=== PATIENT | female | born 1970 | race Caucasian/White ===

== ENCOUNTER → 2018-04-27 | Day surgery (SDC) | payer BC ==
[~2018-04-27] MED LIST: Lactated Ringers 1,000 ML IV SCH; Midazolam 1 MG/ML 2 ML SDV ONE; Propofol 200 MG/20 ML SDV ONE; Sodium Chloride 0.9% 10 ML Syringe FLUSH PRN; fentaNYL 100 MCG/2 ML SDV ONE
--- NOTE | 2018-04-27 10:16 | PCM.HPR ---
H & P Addendum review - H & P Addendum Review Date of Original H & P: 04/11/18 Date Reviewed: 04/27/18 Time Reviewed: 10:16 Patient was Examined: No Changes
--- NOTE | 2018-04-27 10:52 | PCM.OPNOTE ---
- General Post-Op/Procedure Note Date of Surgery/Procedure: 04/27/18 Operative Procedure(s): Colonoscopy Findings: normal Pre Op Diagnosis: Hx Polyps Post-Op Diagnosis: Same Anesthesia Technique: CATHERINE Secondary Surgeon: Duane Hurley Locomotive Repairer Diesel: Aretha Bower Complications: None Condition: Good Free Text/Narrative:: Intake & Output 04/26/18 04/27/18 04/27/18 22:59 06:59 14:59 Intake Total 600 Balance 600
--- NOTE | 2018-04-27 14:45 | OR ---
Date of Procedure: 04/27/2018 PREOPERATIVE DIAGNOSIS: History of colon polyps. POSTOPERATIVE DIAGNOSIS: Normal colonoscopy. PROCEDURE: Colonoscopy. ANESTHESIA: IV sedation. DESCRIPTION OF PROCEDURE: The patient was brought to the procedure room, where she was placed on her left side and IV sedation administered. Digital rectal exam was performed, which was normal. Colonoscope was inserted and advanced to the level of the cecum without difficulty. Cecal position was confirmed by identifying the appendiceal lumen and the ileocecal valve. Prep was good and surfaces were well visualized. Upon withdrawing the scope, the ascending, transverse, and descending colon were normal in appearance. Sigmoid colon and rectum were normal. Retroflexion was normal. Air was removed and the scope withdrawn. The patient tolerated procedure well and returned to recovery in stable condition. Recommend routine colon screening again in 5 years. LEVAR ODEN MD /[id number]
== END | disposition home or self-care (01) ==
LOC: LL.SDS 08:47
PROVIDERS: ATTEND Surgery
DX: Z12.11 Encounter for screening for malignant neoplasm of colon (principal); J30.9 Allergic rhinitis, unspecified; F17.210 Nicotine dependence, cigarettes, uncomplicated; F41.8 Other specified anxiety disorders; Z79.1 Long term (current) use of non-steroidal anti-inflammatories (NSAID); Z79.899 Other long term (current) drug therapy; Z88.5 Allergy status to narcotic agent; Z98.890 Other specified postprocedural states; Z86.010 Personal history of colon polyps
CPT/HCPCS: 45378; 81025; J2250; J2704; J3010; J7120

== ENCOUNTER 2019-12-13 14:11 | Emergency (ER) | payer BC ==
--- NOTE | 2019-12-13 14:18 | EDM.PDOC ---
ED HPI GENERAL MEDICAL PROBLEM - General Chief Complaint: Lower Extremity Injury/Pain Stated Complaint: Left foot pain Time Seen by Provider: 12/13/19 14:11 Source of Information: Reports: Patient, Family (), Old Records ([facility] chart/EMR) History Limitations: Reports: No Limitations - History of Present Illness INITIAL COMMENTS - FREE TEXT/NARRATIVE: The patient was brought to the emergency room via private automobile by her for evaluation of 8/10 left throbbing, sharp foot pain with symptoms present on an intermittent basis since November 2019, however worsening symptoms during the last couple of days. She has still been able to go to work with no history of acute injury, paresthesias, neurological deficits, etc. Patient has also had chronic intermittent bilateral wrist pain during the last few months and nonspecific arthralgias with possible diagnosis of gout in the past. The patient did take Aleve yesterday secondary to running out of her Mobic. She is apparently scheduled for extensive rheumatological blood work and x-rays of her 2 wrists tomorrow by her regular provider, Leandra Arita PA-C, at [facility] in [place]. The patient denies any chest pain/pressure, heart flutter, dizziness, orthostasis, orthopnea, diaphoresis, paresthesias, recent decreased exercise tolerance, or any other anginal-type symptoms. No recent history of abdominal pain, heartburn, nausea, diarrhea, melena, gross hematochezia, or any food intolerance, including fatty foods, etc.. The patient also denies any recent fever, cough, wheezing, dyspnea, etc.. Note that the patient did take 1000 mg of Tylenol at 5 AM and 20 mg of Flexeril at 14:00 hours today with no improvement of her symptoms. Onset: Gradual, Other (As above) Duration: Getting Worse Location: Reports: Upper Extremity, Left, Upper Extremity, Right, Lower Extremity, Left, Generalized. Denies: Head, Face, Neck, Chest, Abdomen, Back, Pelvis, Radiates to Quality: Reports: Same as Previous Episode, Sharp, Throbbing Severity: Moderate Improves with: Reports: None Worsens with: Reports: None Context: Reports: Other (As above). Denies: Sick Contact, Trauma Associated Symptoms: Denies: Confusion, Chest Pain, Cough, Diaphoresis, Fever/ Chills, Headaches, Loss of Appetite, Nausea/Vomiting, Shortness of Breath, Weakness Treatments SUPER[employer]OR MAILS: Reports: NSAIDS, Other Medication(s) (Home medications as above) Left foot Pain Score (Numeric/FACES): 8 - Related Data Allergies Allergy/AdvReac Type Severity Reaction Status Date / Time codeine Allergy Itching Verified 09/10/18 22:47 Home Meds: Home Meds ALPRAZolam [Alprazolam] 0.25 mg PO TID PRN 04/06/15 [History] Escitalopram [Lexapro] 15 mg PO DAILY 04/06/15 [History] Multivit-Min/FA/Lycopen/Lutein [Centrum Silver Tablet] 2 tab PO DAILY 12/13/19 [ History] allopurinoL [Zyloprim] 100 mg PO DAILY 12/13/19 [History] Past Medical History HEENT History: Reports: Impaired Vision, Other (See Below). Denies: Allergic Rhinitis, Cataract, Glaucoma, Hard of Hearing, Macular Degeneration, Retinal Detachment Other HEENT History: Patient wears glasses. Cardiovascular History: Reports: High Cholesterol, Other (See Below). Denies: Afib, Aneurysm, Arrhythmia, Blood Clots/VTE/DVT, CAD, Heart Failure, Heart Murmur, Hypertension, AR, Syncope Other Cardiovascular History: Dyslipidemia. Respiratory History: Reports: Intubation, Previous. Denies: Asthma, Bronchitis , Recurrent, COPD, Intubation, Difficult, PE, Pneumonia, Recurrent, Pneumothorax , Sleep Apnea, TB Gastrointestinal History: Reports: Cholelithiasis, Colon Polyp, Other (See Below ). Denies: Bowel Obstruction, Celiac Disease, Fatty Liver, GERD, GI Bleed, Inflammatory Bowel Disease, Irritable Bowel Syndrome, Jaundice, Pancreatitis, PUD Other Gastrointestinal History: Polyps of unknown type. Initially removed in about 2014. Genitourinary History: Reports: None. Denies: Acute Renal Failure, Chronic Renal Insuffiency, Renal Calculus, STD, Urinary Incontinence, UTI, Recurrent X RAY DEVELOPER History: Reports: Dysfunctional Uterine Bleeding, Fibroids, Polycystic Ovaries, . Denies: Endometriosis, Spontaneous , Therapeutic : 3 Para: 3 Other X RAY DEVELOPER History: Right ovarian cyst, 3. Full-term deliveries without other complications during or deliveries. History of atypical Pap smear of unknown character with no therapy required. LMP one week ago which was normal. Musculoskeletal History: Reports: Amputation, Arthritis, Back Pain, Chronic, Fracture, Gout, Osteoarthritis, Other (See Below). Denies: Neck Pain, Chronic, RA, SLE Other Musculoskeletal History: Hx Left ankle fracture in about 1997 with surgery as below. L5S1 anterolisthesis. Distal left fibular avulsion fracture on 02/27/08. Neurological History: Reports: None, Neuropathy, Peripheral. Denies: Cerebral Aneurysms, Concussion, CVA, Headaches, Chronic, Head Trauma, Migraines, MS, Parkinson's, Seizure, TIA, Vertigo Psychiatric History: Reports: Anxiety, Depression. Denies: Abuse, Victim of, ADD, ADHD, Addiction, Psych Hospitalization(s), PTSD, Suicide Attempt, Suicidal Ideation Endocrine/Metabolic History: Reports: Obesity/BMI 30+. Denies: Diabetes, Gestational, Diabetes, Type I, Diabetes, Type II, Diabetes Mellitus, Type 3c, Hypothyroidism, IDDM Hematologic History: Reports: None. Denies: Anemia, Blood Transfusion(s), Iron Deficiency Immunologic History: Denies: AIDS, HIV, SLE Oncologic (Cancer) History: Reports: None. Denies: Basal Cell Carcinoma, Breast , Cervix, Colon, Hodgkin's Lymphoma, Leukemia, Lymphoma, Malignant Melanoma, Non -Hodgkin's Lymphoma, Ovarian, Squamous Cell Carcinoma, Uterine Dermatologic History: Reports: None. Denies: Eczema, Psoriasis - Infectious Disease History Infectious Disease History: Reports: Chicken Pox (Childhood brief blindness from bursal infection?). Denies: C-Difficile, Measles, Meningitis, Mononucleosis, MRSA, Mumps, Rheumatic Fever, Rubella, Scarlet Fever, Shingles, TB, VRE - Past Surgical History Head Surgeries/Procedures: Reports: None HEENT Surgical History: Reports: Adenoidectomy, Oral Surgery, Tonsillectomy, Other (See Below). Denies: Cataract Surgery, Detached Retina, Eye Surgery, Laser Surgery, LASIK, Myringotomy w Tube(s), Naso-Sinus Surgery Other HEENT Surgeries/Procedures: Tonsillectomy and adenoidectomy at age 11. [place] teeth extraction 4 at about age 18 with additional teeth extractions. Cardiovascular Surgical History: Reports: None. Denies: Varicose Respiratory Surgical History: Reports: None. Denies: Thoracentesis GI Surgical History: Reports: Cholecystectomy, Colonoscopy, Hernia Repair/Other , Polypectomy, Other (See Below). Denies: Appendectomy, EGD, Hernia, Abdominal , Hernia, Inguinal Other GI Surgeries/Procedures: Umbilical hernia repair on 07/21/07. Colonoscopy on 07/06/12 with removal of hyperplastic colonic polyp at 8 cm. Last colonoscopy on 04/27/18 was normal. Laparoscopic cholecystectomy in the early 1999s. Female Surgical History: Reports: Section, D&C, Other (See Below). Denies: Breast Biopsy, Cervical Conization, Cervical Cryotherapy, Hysterectomy, LEEP, Oophorectomy, Salpingo-Oophorectomy, Tubal Ligation Other Female Surgeries/Procedures: 3. D&C secondary to dysfunctional uterine bleeding on 07/06/12. Endocrine Surgical History: Reports: None. Denies: Thyroid Biopsy Neurological Surgical History: Reports: None. Denies: C-Spine, Discectomy, Laminectomy, Lumbar Spine, Sacral Spine, Spinal Fusion, Thoracic Spine, Vertebroplasty Musculoskeletal Surgical History: Reports: Arthroscopic Procedure, ORIF, Shoulder Surgery, Other (See Below). Denies: Arthroscopic Knee, Carpal Tunnel, Ganglion Cyst, Joint Replacement Other Musculoskeletal Surgeries/Procedures:: Arthroscopic left shoulder rotator cuff repair December 2018. ORIF of left ankle fracture in about 1997. Oncologic Surgical History: Reports: None Dermatological Surgical History: Reports: None - Past Imaging History Past Imaging History: Reports: CAT Scan (CT scan of the abdomen and pelvis on and 07/27/16.), Mammogram (Last mammogram on 08/10/19.), MRI (MRI of the left shoulder on 11/20/18.), Ultrasound (Pelvic ultrasound on 09/11/18, 08/23/18 and 06/05/12..) Social & Family History - Family History GI: Reports: Colon Polyps, Diverticulitis, Diverticulosis, Inflammatory Bowel Disease, Other (See Below). Denies: Celiac Disease, Cholelithiasis, GERD, GI bleed, Irritable Bowel Syndrome, Pancreatitis Other GI Family History: History of colonic polyps of unknown type and also irritable bowel syndrome. Mother with diverticulitis. Musculoskeletal: Reports: RA, Other (See Below). Denies: Gout, SLE Other Musculoskeletal Family History: Father with rheumatoid arthritis at age 33 with paternal grandmother with rheumatoid arthritis at age 23. - Tobacco Use Smoking Status *Q: Current Every Day Smoker Tobacco Use Within Last Twelve Months: No, Cigarettes Years of Tobacco use: 32 Packs/Tins Daily: 0.5 Packs/Tins Daily Comment: Started Smoking at age 17. Used Tobacco, but Quit: No Smoking Cessation Information Provided To Patient: Yes Second Hand Smoke Exposure: No Second Hand Smoke Education Provided: No - Caffeine Use Caffeine Use: Reports: Coffee (1 cup per week), Energy Drinks (1 Can per day), Soda (1 soda per week). Denies: Tea - Alcohol Use Alcohol Use History: Yes Days Per Week of Alcohol Use: 2 Number of Drinks Per Day: 4 Number of Drinks Per Day Comment: Usually mixed drinks. No previous DWIs, problems with alcohol abuse, etc. Total Drinks Per Week: 8 Alcohol Use in Last Twelve Months: Yes - Recreational Drug Use Recreational Drug Use: Yes Drug Use in Last 12 Months: No Recreational Drug Type: Reports: Marijuana/Hashish (Experimental as a teenager.) . Denies: Amphetamines (Speed), Heroin, Inhalants (Glues, Solvents, Aerosols), LSD (Acid), Methamphetamine, Morphine, Oxycodone - Living Situation & Occupation Living situation: Reports: (2006 to second with one child from this marriage.), ( from first with no children from that marriage, however to previous children from significant other relationships with second child given up for adoption.) Occupation: Employed ([employer]) Review of Systems - Review of Systems Review Of Systems: Comprehensive ROS is negative, except as noted in HPI. ED EXAM, GENERAL - Physical Exam Exam: See Below Exam Limited By: No Limitations General Appearance: Alert, WD/WN, No Apparent Distress, Anxious (Moderate) Eye Exam: Bilateral Eye: EOMI, Normal Inspection (No nystagmus. Patient wearing glasses), PERRL Ears: Normal External Exam, Normal Canal, Hearing Grossly Normal, Normal TMs Nose: Normal Inspection, Normal Mucosa, No Blood Throat/Mouth: Normal Inspection, Normal Lips, Normal Teeth, Normal Gums, Normal Oropharynx, Normal Voice, No Airway Compromise. No: Dysphagia, Perioral Cyanosis Head: Atraumatic, Normocephalic. No: Facial Swelling, Facial Tenderness, Sinus Tenderness Neck: Normal Inspection, Supple, Non-Tender, Full Range of Motion. No: Carotid Bruit, Lymphadenopathy (L), Lymphadenopathy (R), Thyromegaly Respiratory/Chest: No Respiratory Distress, Lungs Clear, Normal Breath Sounds, No Accessory Muscle Use, Chest Non-Tender. No: Pleural Rub, Retractions Cardiovascular: Normal Peripheral Pulses, Regular Rate, Rhythm, No Edema, No Gallop, No JVD, No Murmur, No Rub. No: Gallop/S3, Gallop/S4, Friction Rub Peripheral Pulses: 2+: Radial (L), Radial (R), Dorsalis Pedis (L), Dorsalis Pedis (R) GI/Abdominal: Normal Bowel Sounds, Soft, Non-Tender, No Organomegaly, No Distention, No Abnormal Bruit, No Mass, Other (Obese). No: Guarding (Female) Exam: Deferred Rectal (Female) Exam: Deferred Back Exam: Normal Inspection, Full Range of Motion. No: CVA Tenderness (L), CVA Tenderness (R), Muscle Spasm Extremities: Normal Range of Motion, Non-Tender, No Pedal Edema, Normal Capillary Refill, Leg Pain (Nonspecific diffuse left foot pain bilateral wrist pain without evidence of effusion, local warming, inflammation, etc.). No: Joint Swelling, Lilliam's Sign Neurological: Alert, Oriented, CN II-XII Intact, Normal Cognition, Normal Gait, Normal Reflexes, No Motor/Sensory Deficits Psychiatric: Anxious (Moderate), Depressed Mood (Moderate) Skin Exam: Warm, Dry, Intact, Normal Color, No Rash, Tattoo(s). No: Diaphoretic , Ecchymosis, Increased Warmth, Petechiae, Rash, Wound/Incision Lymphatic: No Adenopathy Course - Vital Signs Last Recorded V/S: Last Vital Signs Temp 36.9 C 12/13/19 14:20 Pulse 85 12/13/19 14:20 Resp 21 H 12/13/19 14:20 BP 127/68 12/13/19 14:20 Pulse Ox 99 12/13/19 14:20 Vital Signs - 24 hr 12/13/19 14:20 Temperature [ 36.9 C Oral] Pulse, 85 Peripheral [ Left Pulse Oximetry] Respiratory 21 H Rate Blood Pressure 127/68 [Left Upper Arm ] O2 Sat by Pulse 99 Oximetry - Orders/Labs/Meds Orders: Active Orders 24 hr Category Date Time Status Influenza Vaccine Charge [RC] .DISCHARGE Care 12/13/19 15:05 Active Foot Comp Min 3V Lt [CR] Stat Exams 12/13/19 14:19 Taken Wrist Comp Min 3V Bi [CR] Stat Exams 12/13/19 14:20 Taken MARY W/REFLEX [REF] Routine Lab 12/13/19 15:11 Received CCP ANTIBODIES IGG/IGA [REF] Stat Lab 12/13/19 15:11 Received RHEUMATOID FACTOR [REF] Stat Lab 12/13/19 15:11 Received Obtain Past Medical Record [OM.PC] Routine Oth 12/13/19 14:19 Active Labs: Laboratory Tests 12/13/19 12/13/19 12/13/19 Range/Units 15:11 15:11 15:11 WBC 10.7 H (4.0-10.2) K/uL RBC 4.13 (3.77-5.09) M/uL Hgb 11.4 L (11.7-15.5) g/dL Hct 35.4 (34.0-46.0) % MCV 85.7 (84.0-98.0) fL MCH 27.6 L (28.2-33.3) pg MCHC 32.2 (31.7-36.0) g/dL RDW 14.8 H (11.2-14.1) % Plt Count 351 H (150-350) K/uL Neut % (Auto) 70.4 (45.0-80.0) % Lymph % (Auto) 15.9 (10.0-50.0) % [place] % (Auto) 8.6 (2.0-14.0) % Eos % (Auto) 4.5 (0.0-5.0) % Baso % (Auto) 0.6 (0.0-2.0) % Neut # (Auto) 7.50 H (1.40-7.00) K/uL Lymph # (Auto) 1.69 (0.50-3.50) K/uL [place] # (Auto) 0.92 (0.00-1.00) K/uL Eos # (Auto) 0.48 (0.00-0.50) K/uL Baso # (Auto) 0.06 (0.00-0.20) K/uL ESR (0-20) mm/hr Sodium 140 (136-145) mmol/L Potassium 3.5 (3.5-5.1) mmol/L Chloride 103 (98-107) mmol/L Carbon Dioxide 26.1 (21.0-32.0) mmol/L BUN 11 (7-18) mg/dL Creatinine 0.57 (0.51-1.17) mg/dL Est Cr Clr Drug Dosing 102.04 mL/min Estimated GFR (MDRD) > 60 mL/min Glucose 106 (74-106) mg/dL Uric Acid 5.1 (2.6-7.2) mg/dL Calcium 8.7 (8.5-10.1) mg/dL Total Bilirubin 0.5 (0.2-1.0) mg/dL AST 18 (15-37) U/L ALT 19 (12-78) U/L Alkaline Phosphatase 110 (46-116) IU/L C-Reactive Protein 4.5 H (<=0.9) mg/dL Total Protein 7.3 (6.4-8.2) g/dL Albumin 3.5 (3.4-5.0) g/dL Triglycerides 68 (30-150) mg/dL Cholesterol 140 (100-200) mg/dL LDL Cholesterol, Calc 66 (0-100) mg/dL HDL Cholesterol 60 (40-60) mg/dL TSH, Ultra Sensitive 1.981 (0.358-3.740) mIU/mL 12/13/19 Range/Units 15:11 WBC (4.0-10.2) K/uL RBC (3.77-5.09) M/uL Hgb (11.7-15.5) g/dL Hct (34.0-46.0) % MCV (84.0-98.0) fL MCH (28.2-33.3) pg MCHC (31.7-36.0) g/dL RDW (11.2-14.1) % Plt Count (150-350) K/uL Neut % (Auto) (45.0-80.0) % Lymph % (Auto) (10.0-50.0) % [place] % (Auto) (2.0-14.0) % Eos % (Auto) (0.0-5.0) % Baso % (Auto) (0.0-2.0) % Neut # (Auto) (1.40-7.00) K/uL Lymph # (Auto) (0.50-3.50) K/uL [place] # (Auto) (0.00-1.00) K/uL Eos # (Auto) (0.00-0.50) K/uL Baso # (Auto) (0.00-0.20) K/uL ESR 34 H (0-20) mm/hr Sodium (136-145) mmol/L Potassium (3.5-5.1) mmol/L Chloride (98-107) mmol/L Carbon Dioxide (21.0-32.0) mmol/L BUN (7-18) mg/dL Creatinine (0.51-1.17) mg/dL Est Cr Clr Drug Dosing mL/min Estimated GFR (MDRD) mL/min Glucose (74-106) mg/dL Uric Acid (2.6-7.2) mg/dL Calcium (8.5-10.1) mg/dL Total Bilirubin (0.2-1.0) mg/dL AST (15-37) U/L ALT (12-78) U/L Alkaline Phosphatase (46-116) IU/L C-Reactive Protein (<=0.9) mg/dL Total Protein (6.4-8.2) g/dL Albumin (3.4-5.0) g/dL Triglycerides (30-150) mg/dL Cholesterol (100-200) mg/dL LDL Cholesterol, Calc (0-100) mg/dL HDL Cholesterol (40-60) mg/dL TSH, Ultra Sensitive (0.358-3.740) mIU/mL Meds: Medications Discontinued Medications Generic Name Dose Route Start Last Admin Trade Name Freq PRN Reason Stop Dose Admin Influenza Virus Vaccine 60 mcg 12/13/19 15:15 12/13/19 15:25 Fluzone Quad [id number] Syringe IM 12/13/19 15:16 60 mcg .ONCE ONE Administration Ketorolac Tromethamine 60 mg 12/13/19 15:27 12/13/19 15:32 Toradol IM 12/13/19 15:28 60 mg ONETIME ONE Administration Methylprednisolone Acetate 80 mg 12/13/19 15:03 12/13/19 15:25 Depo-Medrol IM 12/13/19 15:04 80 mg ONETIME ONE Administration - Radiology Interpretation Free Text/Narrative:: X-rays of the left foot, complete, shows evidence of mild osteoarthritic changes with no acute joint inflammation, dislocation, fractures, etc. X-rays of the wrists bilaterally, complete, shows mild osteoarthritic changes with no dislocation, fracture, etc. Departure - Departure Time of Disposition: 16:25 Disposition: Home, Self-Care 01 Condition: Good Clinical Impression: Dyslipidemia, Mixed anxiety depressive disorder, Tobacco abuse counseling Osteoarthritis Qualifiers: Osteoarthritis location: multiple joints Osteoarthritis type: primary Qualified Code(s): M15.0 - Primary generalized (osteo)arthritis Anemia Qualifiers: Anemia type: unspecified type Qualified Code(s): D64.9 - Anemia, unspecified - Discharge Information *PRESCRIPTION DRUG MONITORING PROGRAM REVIEWED*: Not Applicable *COPY OF PRESCRIPTION DRUG MONITORING REPORT IN PATIENT ALYCIA: Not Applicable Instructions: Steps to Quit Smoking, [id number], Health Risks of Smoking, Ketorolac injection, Fat and Cholesterol Restricted Eating Plan, [id number], Methylprednisolone Suspension for Injection Referrals: Leandra Weinstein PA-C [Primary Care Provider] - Forms: ED Department Discharge Additional Instructions: 1. Followup with your regular provider in 7-10 days as directed for reevaluation and discussion of pending lab results from today as discussed. Bring these discharge instructions with you to that visit. 2. Tylenol 650 mg by mouth every 4 hours and/or OTC ibuprofen 2-3 tabs by mouth every 6 hours with food as directed./needed. You may stagger these medications for 48-72 hours only, which essentially means that you are receiving a pain medication about every 2 hours. Next dose of ibuprofen in 6 hours as needed secondary to medications given in the emergency room. 3. Discontinue all energy drink use as discussed. 4. NEVER EXCEED THE RECOMMENDED DOSE OF MEDICINES, INCLUDING OTC MEDICINES, ETC. 5. Stop all tobacco use TORRI as directed/per provided information and consider contacting Quit LIne, etc.. 6. Please remember that we are ALWAYS here for you and want to answer any questions you may have. Feel free to call the hospital any time and we call you back TORRI. 7. Immediately after this visit verify that your cellular telephone's voicemail has been activated and is empty. Also verify that your home telephone 's answering machine is operating properly and has space to receive messages. Note that it is sometimes necessary for us to be able to contact you at a later date to discuss your medical care. 8. BenGay or equivalent, heating pad, and/or ice packs as directed. Sepsis Event Note - Focused Exam Vital Signs: Vital Signs Temp Pulse Resp BP Pulse Ox 12/13/19 14:20 36.9 C 85 21 H 127/68 99 Date Exam was Performed: 12/13/19 Time Exam was Performed: 16:14 - Problem List & Annotations (1) Osteoarthritis SNOMED Code(s): 821039365 Code(s): M19.90 - UNSPECIFIED OSTEOARTHRITIS, UNSPECIFIED SITE Status: Acute Priority: High Current Visit: Yes Annotation/Comment:: Extensive rheumatological workup was conducted today as previously planned by her regular provider with orders received from [facility] in [place] today. Some blood work results are still pending with patient to follow-up with her provider as per discharge instructions. Consider rheumatology referral depending on the workup as above. Various therapeutic options were discussed with the patient, who agrees to change to Tylenol and ibuprofen regimen rather than Modic secondary to Modic's previous ineffectiveness, cost, etc.. She does not need/want a work excuse. The patient was strongly encouraged to remain compliant with all medications and not exceed recommended doses. Per her request IM Depo-Medrol and IM Toradol were given after the above blood work was collected. Otherwise symptomatic relief as per discharge instructions. Note that her CRP and ESR are elevated. Consider possible additional low-dose oral versus subcutaneous methotrexate, other DMARDs, etc. She may be a candidate for biologic therapy. Qualifiers: Osteoarthritis location: multiple joints Osteoarthritis type: primary Qualified Code(s): M15.0 - Primary generalized (osteo)arthritis (2) Dyslipidemia SNOMED Code(s): 030242101 Code(s): E78.5 - HYPERLIPIDEMIA, UNSPECIFIED Status: Chronic Priority: Medium Current Visit: Yes Annotation/Comment:: Weight loss in moderation is advisable. Lipid panel was drawn today per her regular providers request and is 12 hours fasting. Excellent lipid panel today. Dietary information provided at discharge. (3) Mixed anxiety depressive disorder SNOMED Code(s): 238603555 Code(s): F41.8 - OTHER SPECIFIED ANXIETY DISORDERS Status: Chronic Priority: Medium Current Visit: Yes Annotation/Comment:: Moderately poor control based on today's evaluation. Continue to observe her symptoms closely by her regular provider with medication adjustments, counseling, etc. depending on her clinical course. (4) Tobacco abuse counseling SNOMED Code(s): 530616019, 535023391, 785327242 Code(s): Z71.6 - TOBACCO ABUSE COUNSELING Status: Chronic Priority: Medium Current Visit: Yes Annotation/Comment:: Tobacco cessation strongly encouraged with tobacco cessation information provided at discharge. (5) Anemia SNOMED Code(s): 641581585 Code(s): D64.9 - ANEMIA, UNSPECIFIED Status: Acute Priority: Medium Current Visit: Yes Onset Date: 12/13/19 Annotation/Comment:: Mild anemia today with no abdominal complaints, etc. Observe for now. Further workup depending on her clinical course. Mild leukocytosis and thrombocytosis with no fever, sign of infection, etc.. Observe for now. Qualifiers: Anemia type: unspecified type Qualified Code(s): D64.9 - Anemia, unspecified - Problem List Review Problem List Initiated/Reviewed/Updated: Yes - My Orders Last 24 Hours: My Active Orders 12/13/19 14:19 Foot Comp Min 3V Lt [CR] Stat Obtain Past Medical Record [OM.PC] Routine 12/13/19 14:20 Wrist Comp Min 3V Bi [CR] Stat 12/13/19 15:05 Influenza Vaccine Charge [RC] .DISCHARGE 12/13/19 15:11 MARY W/REFLEX [REF] Routine CCP ANTIBODIES IGG/IGA [REF] Stat RHEUMATOID FACTOR [REF] Stat - Assessment/Plan Last 24 Hours: My Active Orders 12/13/19 14:19 Foot Comp Min 3V Lt [CR] Stat Obtain Past Medical Record [OM.PC] Routine 12/13/19 14:20 Wrist Comp Min 3V Bi [CR] Stat 12/13/19 15:05 Influenza Vaccine Charge [RC] .DISCHARGE 12/13/19 15:11 MARY W/REFLEX [REF] Routine CCP ANTIBODIES IGG/IGA [REF] Stat RHEUMATOID FACTOR [REF] Stat Assessment:: As above Plan: As above. Extensive precautions were given to the patient and her , who are in agreement with the treatment plan. See Patient Instructions for further treatment and plan.
[2019-12-13] MEDS ORDERED: methylPREDNISolone Acetate 80 MG/ML SDV IM ONE (15:03)
[2019-12-13] MEDS ORDERED: FLU Vacc QS2019-20(6MOS+)/PF 60 MCG/0.5 ML SYRINGE IM ONE (15:15)
[2019-12-13] MEDS ORDERED: Ketorolac 60 MG/2 ML SDV IM ONE (15:27)
[2019-12-13 15:36] LABS: CHLORIDE,CL 103 mmol/L (98-107); SODIUM,NA 140 mmol/L (136-145)
== END 2019-12-13 16:25 | disposition home or self-care (01) ==
LOC: LL.ED 14:11
DX: M15.0 Primary generalized (osteo)arthritis (principal); E78.5 Hyperlipidemia, unspecified; F41.8 Other specified anxiety disorders; D64.9 Anemia, unspecified; M10.9 Gout, unspecified; F17.210 Nicotine dependence, cigarettes, uncomplicated; E66.9 Obesity, unspecified; Z68.33 Body mass index [BMI] 33.0-33.9, adult; Z71.6 Tobacco abuse counseling; Z88.5 Allergy status to narcotic agent; Z79.899 Other long term (current) drug therapy; Z23 Encounter for immunization
CPT/HCPCS: 36415; 73110-50; 73630-LT; 80053; 80061; 84443; 84550; 85025; 85652; 86038; 86140; 86200; 86431; 90686; 96372; 99283-25; G0008; J1040; J1885

== ENCOUNTER 2020-01-11 06:26 | Emergency (ER) | payer BC, OTHER ==
[2020-01-11] MEDS ORDERED: Ketorolac 60 MG/2 ML SDV IM ONE (06:47)
--- NOTE | 2020-01-11 06:51 | EDM.PDOC ---
ED HPI GENERAL MEDICAL PROBLEM - General Chief Complaint: Upper Extremity Injury/Pain Stated Complaint: right shoulder pain Time Seen by Provider: 01/11/20 06:46 Source of Information: Reports: Patient History Limitations: Reports: No Limitations - History of Present Illness INITIAL COMMENTS - FREE TEXT/NARRATIVE: Pt with right shoulder pain Pt has hx/o chronic right shoulder pain Has been seen in clinic for this Worse over past several days Onset: Gradual Duration: Week(s):, Chronic, Intermittent Location: Reports: Upper Extremity, Right Quality: Reports: Throbbing Severity: Moderate Improves with: Reports: Immobilization Worsens with: Reports: Movement Right Shoulder Pain Score (Numeric/FACES): 9 - Related Data Allergies Allergy/AdvReac Type Severity Reaction Status Date / Time codeine Allergy Itching Verified 09/10/18 22:47 Home Meds: Home Meds ALPRAZolam [Alprazolam] 0.25 mg PO TID PRN 04/06/15 [History] Escitalopram [Lexapro] 15 mg PO DAILY 04/06/15 [History] Multivit-Min/FA/Lycopen/Lutein [Centrum Silver Tablet] 2 tab PO DAILY 12/13/19 [ History] Past Medical History HEENT History: Reports: Impaired Vision, Other (See Below) Other HEENT History: Patient wears glasses. Cardiovascular History: Reports: High Cholesterol, Other (See Below) Other Cardiovascular History: Dyslipidemia. Respiratory History: Reports: Intubation, Previous Gastrointestinal History: Reports: Cholelithiasis, Colon Polyp, Other (See Below ) Other Gastrointestinal History: Polyps of unknown type. Initially removed in about 2014. Genitourinary History: Reports: None SCRIPT ARTIST History: Reports: Dysfunctional Uterine Bleeding, Fibroids, Polycystic Ovaries, Other SCRIPT ARTIST History: Right ovarian cyst, 3. Full-term deliveries without other complications during or deliveries. History of atypical Pap smear of unknown character with no therapy required. LMP one week ago which was normal. Musculoskeletal History: Reports: Amputation, Arthritis, Back Pain, Chronic, Fracture, Gout, Osteoarthritis, Other (See Below) Other Musculoskeletal History: Hx Left ankle fracture in about 1997 with surgery as below. L5S1 anterolisthesis. Distal left fibular avulsion fracture on 02/27/08. Neurological History: Reports: None, Neuropathy, Peripheral Psychiatric History: Reports: Anxiety, Depression Endocrine/Metabolic History: Reports: Obesity/BMI 30+ Hematologic History: Reports: None Oncologic (Cancer) History: Reports: None Dermatologic History: Reports: None - Infectious Disease History Infectious Disease History: Reports: Chicken Pox - Past Surgical History Head Surgeries/Procedures: Reports: None HEENT Surgical History: Reports: Adenoidectomy, Oral Surgery, Tonsillectomy, Other (See Below) Other HEENT Surgeries/Procedures: Tonsillectomy and adenoidectomy at age 11. [place] teeth extraction 4 at about age 18 with additional teeth extractions. Cardiovascular Surgical History: Reports: None Respiratory Surgical History: Reports: None GI Surgical History: Reports: Cholecystectomy, Colonoscopy, Hernia Repair/Other , Polypectomy, Other (See Below) Other GI Surgeries/Procedures: Umbilical hernia repair on 07/21/07. Colonoscopy on 07/06/12 with removal of hyperplastic colonic polyp at 8 cm. Last colonoscopy on 04/27/18 was normal. Laparoscopic cholecystectomy in the early 1999s. Female Surgical History: Reports: Section, D&C, Other (See Below) Other Female Surgeries/Procedures: 3. D&C secondary to dysfunctional uterine bleeding on 07/06/12. Endocrine Surgical History: Reports: None Neurological Surgical History: Reports: None Musculoskeletal Surgical History: Reports: Arthroscopic Procedure, ORIF, Shoulder Surgery, Other (See Below) Other Musculoskeletal Surgeries/Procedures:: Arthroscopic left shoulder rotator cuff repair December 2018. ORIF of left ankle fracture in about 1997. Oncologic Surgical History: Reports: None Dermatological Surgical History: Reports: None - Past Imaging History Past Imaging History: Reports: CAT Scan (CT scan of the abdomen and pelvis on and 07/27/16.), Mammogram (Last mammogram on 08/10/19.), MRI (MRI of the left shoulder on 11/20/18.), Ultrasound (Pelvic ultrasound on 09/11/18, 08/23/18 and 06/05/12..) Social & Family History - Family History GI: Reports: Colon Polyps, Diverticulitis, Diverticulosis, Inflammatory Bowel Disease, Other (See Below) Other GI Family History: History of colonic polyps of unknown type and also irritable bowel syndrome. Mother with diverticulitis. Musculoskeletal: Reports: RA, Other (See Below) Other Musculoskeletal Family History: Father with rheumatoid arthritis at age 33 with paternal grandmother with rheumatoid arthritis at age 23. - Tobacco Use Smoking Status *Q: Current Every Day Smoker Years of Tobacco use: 30 Packs/Tins Daily: 0.5 - Caffeine Use Caffeine Use: Reports: Coffee - Recreational Drug Use Recreational Drug Use: No - Living Situation & Occupation Living situation: Reports: (2006 to second with one child from this marriage.), ( from first with no children from that marriage, however to previous children from significant other relationships with second child given up for adoption.) Occupation: Employed ([employer]) Review of Systems - Review of Systems Review Of Systems: See Below Musculoskeletal: Reports: Shoulder Pain ED EXAM, GENERAL - Physical Exam Exam: See Below Exam Limited By: No Limitations Extremities: Limited Range of Motion, Other (Right shoulder tender with ROM and palpation) Course - Vital Signs Last Recorded V/S: Last Vital Signs Temp 97.8 F 01/11/20 06:28 Pulse 65 01/11/20 06:28 Resp 12 01/11/20 06:28 BP 133/62 01/11/20 06:28 Pulse Ox 98 01/11/20 06:28 - Orders/Labs/Meds Orders: Active Orders 24 hr Category Date Time Status Ketorolac [Toradol] Med 01/11/20 06:47 Once 60 mg IM ONETIME ONE - Re-Assessments/Exams Free Text/Narrative Re-Assessment/Exam: 01/11/20 06:49 Pt given Toradol 60 mg IM in ER Departure - Departure Time of Disposition: 07:00 Disposition: Home, Self-Care 01 Clinical Impression: Right shoulder pain Qualifiers: Chronicity: chronic Qualified Code(s): M25.511 - Pain in right shoulder; G89.29 - Other chronic pain - Discharge Information *PRESCRIPTION DRUG MONITORING PROGRAM REVIEWED*: Not Applicable *COPY OF PRESCRIPTION DRUG MONITORING REPORT IN PATIENT ALYCIA: Not Applicable Instructions: Shoulder Pain Referrals: Leandra Weinstein PA-C [Primary Care Provider] - Additional Instructions: Follow up in clinic Sepsis Event Note - Evaluation Sepsis Screening Result: No Definite Risk - Focused Exam Vital Signs: Vital Signs Temp Pulse Resp BP Pulse Ox 01/11/20 06:28 97.8 F 65 12 133/62 98 Date Exam was Performed: 01/11/20 Time Exam was Performed: 06:47 - My Orders Last 24 Hours: My Active Orders 01/11/20 06:47 Ketorolac [Toradol] 60 mg IM ONETIME ONE - Assessment/Plan Last 24 Hours: My Active Orders 01/11/20 06:47 Ketorolac [Toradol] 60 mg IM ONETIME ONE
== END 2020-01-11 07:05 | disposition home or self-care (01) ==
LOC: LL.ED 06:26
DX: G89.29 Other chronic pain (principal); M25.511 Pain in right shoulder; G62.9 Polyneuropathy, unspecified; E66.9 Obesity, unspecified; Z68.34 Body mass index [BMI] 34.0-34.9, adult; F32.9 Major depressive disorder, single episode, unspecified; Z88.5 Allergy status to narcotic agent; Z79.899 Other long term (current) drug therapy
CPT/HCPCS: 96372; 99283; J1885

== ENCOUNTER → 2022-09-29 | Emergency (ER) | payer MEDICAID | LOC: LL.ED 00:21 | DX: Z53.21 Procedure and treatment not carried out due to patient leaving prior to being seen by health care provider (principal) ==

== ENCOUNTER 2022-09-30 17:41 | Emergency (ER) | payer BC, MEDICAID | END 2022-09-30 19:26 | disposition home or self-care (01) | LOC: LL.ED 17:41 | DX: S20.211A Contusion of right front wall of thorax, initial encounter (principal); S00.81XA Abrasion of other part of head, initial encounter; Z88.5 Allergy status to narcotic agent; Z79.899 Other long term (current) drug therapy; Z90.49 Acquired absence of other specified parts of digestive tract; Y04.0XXA Assault by unarmed brawl or fight, initial encounter | CPT/HCPCS: 71101-RT; 99284 ==

== ENCOUNTER 2025-03-14 09:57 | Day surgery (SDC) | payer MEDICARE, MEDICAID ==
[~2025-03-14 09:57] MED LIST changes: -Lactated Ringers 1,000 ML IV SCH; -fentaNYL 100 MCG/2 ML SDV ONE
[2025-03-14] MEDS: Lactated Ringers 1,000 ML IV SCH (11:34)
== END 2025-03-14 13:01 | disposition home or self-care (01) ==
LOC: LL.SDS 09:57
PROVIDERS: ATTEND Surgery
DX: Z12.11 Encounter for screening for malignant neoplasm of colon (principal); D12.5 Benign neoplasm of sigmoid colon; F17.210 Nicotine dependence, cigarettes, uncomplicated; Z88.5 Allergy status to narcotic agent; Z86.16 Personal history of COVID-19; Z79.899 Other long term (current) drug therapy; Z86.0100 Personal history of colon polyps, unspecified
CPT/HCPCS: 00811; J2250; J2704; J7120